=== PATIENT | female | born 1965 | race Caucasian/White ===

== ENCOUNTER → 2016-10-20 | Outpatient (CLI) | payer BC | LOC: MC.RAD 15:28 | DX: Z12.31 Encounter for screening mammogram for malignant neoplasm of breast (principal) ==

== ENCOUNTER 2019-03-14 08:55 | Emergency (ER) | payer BC ==
[~2019-03-14] VITALS: Ht 170.2 cm; Wt 62.6 kg
[2019-03-14 09:00] VITALS: TEMP 98.4
[2019-03-14 09:47] VITALS: BP 102/64; PULSE 79
== END 2019-03-14 09:47 | disposition home or self-care (01) ==
LOC: COL.ER 08:55
DX: S61.211A Laceration without foreign body of left index finger without damage to nail, initial encounter (principal); Z23 Encounter for immunization; W26.0XXA Contact with knife, initial encounter; Y92.009 Unspecified place in unspecified non-institutional (private) residence as the place of occurrence of the external cause

== ENCOUNTER → 2020-03-27 | Outpatient (CLI) | payer BC | LOC: MC.RAD 06:58 | DX: Z12.31 Encounter for screening mammogram for malignant neoplasm of breast (principal) ==